=== PATIENT | female | born 1955 ===

== ENCOUNTER 2018-11-24 11:28 | Outpatient (CLI) | payer OTHER ==
--- NOTE | 2018-11-24 13:42 | XRAY Report ---
Reason: PNEUMONIA Procedure Date: 11/24/2018 Accession Number: [id number] / [id number] Procedure: XRN - Chest 2 View X-Ray CPT Code: 86231 FULL RESULT: EXAM: CHEST RADIOGRAPHY EXAM DATE: 11/24/2018 12:11 PM. CLINICAL HISTORY: Pneumonia. COMPARISON: None. TECHNIQUE: 2 views. FINDINGS: Lungs/Pleura: No focal opacities evident. No pleural effusion. No pneumothorax. Normal volumes. Mediastinum: Heart and mediastinal contours are borderline enlarged. Other: The bones are qualitatively osteopenic; this limits evaluation for underlying fractures or masses. IMPRESSION: No definite pneumonia. [facility]
== END 2018-11-24 11:29 | disposition home or self-care (01) ==
LOC: DI.N 11:28
PROVIDERS: ATTEND Specialist
DX: J18.9 Pneumonia, unspecified organism (principal)
CPT/HCPCS: 71046